=== PATIENT | male | born 1995 | race Caucasian/White ===

== ENCOUNTER 2023-10-26 09:07 | Outpatient (CLI) | payer OTHER, SELFPAY | END 2023-10-26 09:08 | disposition home or self-care (01) | LOC: NFLDREF 09:08 | PROVIDERS: PCP Family Medicine; Visit Provider Family Medicine | DX: Z11.3 Encounter for screening for infections with a predominantly sexual mode of transmission (principal) | CPT/HCPCS: 87491; 87591 ==